=== PATIENT | female | born 1965 | race African-American/Black ===

== ENCOUNTER 2023-07-21 02:20 | Emergency (ER) | payer OTHER, MEDICAID ==
[~2023-07-21] VITALS: Ht 160 cm; Wt 69.0 kg
[2023-07-21 02:38] VITALS: O2SAT 95
[2023-07-21] MEDS ORDERED: KETOROLAC 60MG/2ML VIAL IM ONE (03:15)
[2023-07-21] MEDS ORDERED: KETOROLAC 60MG/2ML VIAL IM NR (03:30)
[2023-07-21 03:42] VITALS: TEMP 98.1
[2023-07-21] MEDS: ACETAMINOPHEN 325MG TABLET PO ONE (03:42)
[2023-07-21] MEDS: DEXAMETHASONE 10 MG/ML VIAL IM ONE (03:42)
[2023-07-21] MEDS: KETOROLAC 30MG/ML VIAL IM NR (03:42)
[2023-07-21 04:30] VITALS: BP 126/82; PULSE 92; RESP 16
[2023-07-21] MEDS ORDERED: ACET-2708 MT (04:39)
[2023-07-21] MEDS ORDERED: BACL-141 MT (04:39)
[2023-07-21] MEDS ORDERED: MED4 MT (04:39)
== END 2023-07-21 04:44 | disposition home or self-care (01) ==
LOC: ER 02:20
DX: S43.491A Other sprain of right shoulder joint, initial encounter (principal); S73.191A Other sprain of right hip, initial encounter; Z88.0 Allergy status to penicillin; W18.39XA Other fall on same level, initial encounter; Y93.89 Activity, other specified; Y92.89 Other specified places as the place of occurrence of the external cause; Y99.8 Other external cause status
CPT/HCPCS: 73503; 71101; 73030; 96372; 99284; J1100; Z7610; J1885

== ENCOUNTER 2024-01-04 02:50 | Emergency (ER) | payer MEDICAID, OTHER ==
[~2024-01-04] VITALS: Ht 160 cm; Wt 64.0 kg
[~2024-01-04 02:50] MED LIST: ACET-2708 MT; BACL-141 MT; METH4TAB95 MT
[2024-01-04 03:03] VITALS: TEMP 97.7; O2SAT 99
[2024-01-04] MEDS: ACETAMINOPHEN WITH CODEINE 300/30MG TABLET PO ONE (05:42)
[2024-01-04] MEDS ORDERED: ACET-2708 PO (06:28)
[2024-01-04 06:50] VITALS: BP 118/75; PULSE 76; RESP 16; O2SAT 99
== END 2024-01-04 07:59 | disposition home or self-care (01) ==
LOC: ER 03:00
DX: M25.512 Pain in left shoulder (principal); Z88.0 Allergy status to penicillin; Z79.899 Other long term (current) drug therapy
CPT/HCPCS: 73030; 99284; A4565